=== PATIENT | male | born 1995 | race American Indian/Alaskan Native ===

== ENCOUNTER 2020-01-01 07:49 | Emergency (ER) | payer SELFPAY ==
--- NOTE | 2020-01-01 08:48 | Emergency Department Report ---
ED Abdominal Pain HPI - General Chief Complaint: Abdominal Pain Stated Complaint: LT SIDE ABD PAIN Time Seen by Provider: 01/01/20 08:37 Source: patient Mode of arrival: Ambulatory Limitations: No Limitations - History of Present Illness Initial Comments: 24-year-old -[place] male patient without significant past medical history presents with complaints of left upper quadrant pain starting this morning. Patient rates his pain as a 8/10 in severity, describes it as sharp/stabbing, and reports it occurs mostly with ambulation. He denies any previous history of abdominal surgeries/GI issues, fever/chills/sweats, cough/shortness of breath/chest pain, urinary symptoms, constipation, hematochezia, or melena. He does report 3 episodes of diarrhea this morning. -: Sudden Location: LUQ Radiation: none Migration to: no migration Severity: severe Severity scale (0 -10): 8 Quality: stabbing Consistency: intermittent Worsens With: movement - Related Data Allergies Allergy/AdvReac Type Severity Reaction Status Date / Time No Known Allergies Allergy Verified 01/01/20 08:01 ED Review of Systems ROS: Stated complaint: LT SIDE ABD PAIN Other details as noted in HPI Constitutional: denies: chills, diaphoresis, fever, malaise, weakness Eyes: denies: vision change Respiratory: denies: cough, shortness of breath Cardiovascular: denies: chest pain, palpitations, edema, syncope Gastrointestinal: abdominal pain, diarrhea. denies: nausea, vomiting, constipation, hematemesis, melena, hematochezia Genitourinary: denies: urgency, dysuria, frequency, hematuria, discharge, testicular pain Musculoskeletal: denies: back pain, joint swelling Skin: denies: rash, change in color Neurological: denies: headache, weakness Hematological/Lymphatic: denies: easy bleeding, swollen glands ED Past Medical Hx - Past Medical History Previous Medical History?: No - Surgical History Past Surgical History?: No - Social History Smoking Status: Never Smoker Substance Use Type: None ED Physical Exam - General Limitations: No Limitations General appearance: alert, in no apparent distress - Head Head exam: Present: atraumatic, normocephalic - Eye Eye exam: Present: normal appearance. Absent: scleral icterus - ENT ENT exam: Present: mucous membranes moist - Neck Neck exam: Present: normal inspection - Respiratory Respiratory exam: Present: normal lung sounds bilaterally. Absent: respiratory distress - Cardiovascular Cardiovascular Exam: Present: regular rate, normal rhythm. Absent: systolic m urmur, diastolic murmur, rubs, gallop - GI/Abdominal GI/Abdominal exam: Present: soft, tenderness (Mild left upper quadrant), normal bowel sounds. Absent: distended, guarding, rebound, rigid - Rectal Rectal exam: Present: deferred - Extremities Exam Extremities exam: Present: normal inspection - Back Exam Back exam: Present: CVA tenderness (L) (Mild) - Neurological Exam Neurological exam: Present: alert, oriented X3, normal gait - Psychiatric Psychiatric exam: Present: normal affect, normal mood - Skin Skin exam: Present: warm, dry, intact, normal color. Absent: rash, cyanosis, diaphoretic, erythema, urticaria, petechiae, pallor, ecchymosis ED Course Vital Signs 01/01/20 08:05 Temperature 97.9 F Pulse Rate 76 Respiratory 20 Rate Blood Pressure 160/97 O2 Sat by Pulse 100 Oximetry ED Medical Decision Making - Lab Data Result diagrams: 01/01/20 08:52 01/01/20 08:48 Lab Results 01/01/20 01/01/20 01/01/20 Range/Units 08:48 08:52 08:54 WBC 4.5 (4.5-11.0) K/mm3 RBC 5.35 H (3.65-5.03) M/mm3 Hgb 15.2 (11.8-15.2) gm/dl Hct 46.2 H (35.5-45.6) % MCV 86 (84-94) fl MCH 28 (28-32) pg MCHC 33 (32-34) % RDW 13.7 (13.2-15.2) % Plt Count 183 (140-440) K/mm3 Lymph % (Auto) 34.2 (13.4-35.0) % [place] % (Auto) 8.6 H (0.0-7.3) % Eos % (Auto) 4.1 (0.0-4.3) % Baso % (Auto) 0.6 (0.0-1.8) % Lymph # 1.6 (1.2-5.4) K/mm3 [place] # 0.4 (0.0-0.8) K/mm3 Eos # 0.2 (0.0-0.4) K/mm3 Baso # 0.0 (0.0-0.1) K/mm3 Seg Neutrophils % 52.5 (40.0-70.0) % Seg Neutrophils # 2.4 (1.8-7.7) K/mm3 Sodium 140 (137-145) mmol/L Potassium 4.3 (3.6-5.0) mmol/L Chloride 103.3 (98-107) mmol/L Carbon Dioxide 24 (22-30) mmol/L Anion Gap 17 mmol/L BUN 14 (9-20) mg/dL Creatinine 1.0 (0.8-1.5) mg/dL Estimated GFR > 60 ml/min BUN/Creatinine Ratio 14 % Glucose 105 H (75-100) mg/dL Calcium 9.5 (8.4-10.2) mg/dL Total Bilirubin < 0.20 (0.1-1.2) mg/dL AST 14 (5-40) units/L ALT 12 (7-56) units/L Alkaline Phosphatase 73 (35-129) units/L Total Protein 7.3 (6.3-8.2) g/dL Albumin 4.3 (3.9-5) g/dL Albumin/Globulin Ratio 1.4 % Lipase 50 (13-60) units/L Urine Color Yellow (Yellow) Urine Turbidity Clear (Clear) Urine pH 6.0 (5.0-7.0) Ur Specific [place] 1.020 (1.003-1.030) Urine Protein <15 mg/dl (Negative) mg/dL Urine Glucose (UA) Neg (Negative) mg/dL Urine Ketones Neg (Negative) mg/dL Urine Blood Neg (Negative) Urine Nitrite Neg (Negative) Urine Bilirubin Neg (Negative) Urine Urobilinogen < 2.0 (<2.0) mg/dL Ur Leukocyte Esterase Neg (Negative) Urine WBC (Auto) < 1.0 (0.0-6.0) /HPF Urine RBC (Auto) 1.0 (0.0-6.0) /HPF U Epithel Cells (Auto) < 1.0 (0-13.0) /HPF Urine Mucus Few /HPF - Medical Decision Making Patient presents for sudden onset of left upper quadrant pain and 3 episodes of diarrhea this morning. He denies any red flag symptoms. He has mild left upper quadrant tenderness on exam without guarding or rebound. CBC, CMP, lipase, and UA are normal. He is afebrile and non-tachycardic. BP noted to be mildly elevated, patient denies history of hypertension. Repeat blood pressure was 147/100. he is nontoxic-appearing and stable for discharge home. Informed patie nt of need for follow-up with his primary care provider within 2 to 3 days for recheck of his blood pressure and follow-up of his symptoms. Discussed in great detail signs and symptoms that should prompt immediate return to the emergency department, patient verbalizes understanding. Critical care attestation.: If time is entered above; I have spent that time in minutes in the direct care of this critically ill patient, excluding procedure time. ED Disposition Clinical Impression: Elevated blood pressure reading, LUQ pain Diarrhea Qualifiers: Diarrhea type: unspecified type Qualified Code(s): R19.7 - Diarrhea, unspecified Disposition: DC-01 TO HOME OR SELFCARE Is pt being admited?: No Condition: Stable Instructions: Acute Diarrhea (ED), Gas and Bloating (ED), Abdominal Pain (ED), Hypertension (ED) Referrals: HUNTER REYNOLDS MD [Staff Physician] - 2-3 Days Forms: Work/School Release Form(ED)
[2020-01-01 09:04] LABS: Basophils % (Auto) 0.6 % (0.0-1.8); Eosinophils # (Auto) 0.2 K/mm3 (0.0-0.4); Eosinophils % (Auto) 4.1 % (0.0-4.3); Hematocrit 46.2 % (35.5-45.6); Hemoglobin 15.2 gm/dl (11.8-15.2); Lymphocytes # (Auto) 1.6 K/mm3 (1.2-5.4); Lymphocytes % (Auto) 34.2 % (13.4-35.0); Mean Corpuscular HGB Conc 33 % (32-34); Mean Corpuscular Volume 86 fl (84-94); Monocytes # (Auto) 0.4 K/mm3 (0.0-0.8); Monocytes % (Auto) 8.6 % (0.0-7.3); Platelet Count 183 K/mm3 (140-440); Red Blood Count 5.35 M/mm3 (3.65-5.03); Red Cell Distribution Width 13.7 % (13.2-15.2)
[2020-01-01 09:06] LABS: Bilirubin,Urine NEG (Negative); Blood,Urine NEG (Negative); Color,Urine Yellow (Yellow); Mucus,Urine FEW /HPF; Protein,Urine <15 mg/dL mg/dL (Negative); Urobilinogen,Urine < 2.0 mg/dL (<2.0); WBC,Urine < 1.0 /HPF (0.0-6.0)
[2020-01-01 09:23] LABS: Alanine Aminotransferase 12 units/L (7-56); Albumin 4.3 g/dL (3.9-5); BUN/Creatinine Ratio 14; Blood Urea Nitrogen 14 mg/dL (9-20); Calcium 9.5 mg/dL (8.4-10.2); Hemolysis Index 18
[2020-01-01 10:30] VITALS: BP 147/100
== END 2020-01-01 10:29 | disposition home or self-care (01) ==
LOC: ED 07:49
DX: R10.32 Left lower quadrant pain (principal); R19.7 Diarrhea, unspecified; R03.0 Elevated blood-pressure reading, without diagnosis of hypertension
CPT/HCPCS: 36415; 80053; 81001; 83690; 85025; 99283